=== PATIENT | female | born 1990 | race Caucasian/White ===

== ENCOUNTER 2016-12-31 10:04 | Emergency (ER) | payer MEDICAID ==
[~2016-12-31 10:04] MED LIST: BENADRYL25 M3 PO; CIPRO500 MG PO; FLAGYL500 MG PO; MOTRIN800 MG PO; NORCO 5/3251 TA2 NG; PERCOCET 5/3251 TAB PO; PRENATAL1 EACH PO; REGLAN10 MG PO; VITAFOL OB; [UNRECOGNIZED DRUG - OTHER]
== END 2016-12-31 11:32 ==
LOC: EDMED 10:04
DX: S91.105A Unspecified open wound of left lesser toe(s) without damage to nail, initial encounter (principal); Z91.040 Latex allergy status; F17.200 Nicotine dependence, unspecified, uncomplicated; W22.8XXA Striking against or struck by other objects, initial encounter; Y92.019 Unspecified place in single-family (private) house as the place of occurrence of the external cause